=== PATIENT | male | born 1995 ===

== ENCOUNTER → 2018-09-18 19:01 | Outpatient (REF) | payer OTHER, SELFPAY | LOC: LAB 19:01 | PROVIDERS: Visit Provider Dermatology | DX: Z48.817 Encounter for surgical aftercare following surgery on the skin and subcutaneous tissue (principal) | CPT/HCPCS: 87070; 87075; 87147; 87205 ==

== ENCOUNTER → 2018-09-24 13:53 | Outpatient (REF) | payer OTHER, SELFPAY | LOC: LAB 13:53 | PROVIDERS: Visit Provider Dermatology | DX: T88.8XXA Other specified complications of surgical and medical care, not elsewhere classified, initial encounter (principal); Z48.02 Encounter for removal of sutures; Z48.817 Encounter for surgical aftercare following surgery on the skin and subcutaneous tissue; T81.40XA Infection following a procedure, unspecified, initial encounter | CPT/HCPCS: 87070; 87077; 87186; 87205 ==